=== PATIENT | female | born 1970 | race Caucasian/White ===

== ENCOUNTER → 2017-02-04 18:36 | Outpatient (CLI) | payer OTHER ==
[2009-05-20 16:12] VITALS: BMI 28.3
== END | disposition home or self-care (01) ==
LOC: D.MAMMO 16:15
DX: Z12.31 Encounter for screening mammogram for malignant neoplasm of breast (principal)

== ENCOUNTER → 2017-02-10 08:57 | Outpatient (CLI) | payer OTHER ==
[2009-05-20 16:12] VITALS: BMI 28.3
--- NOTE | 2017-03-01 09:15 | EC ---
PATIENT:CARLOS NELSON DATE OF SERVICE: 02/10/17 SEX: F MEDICAL RECORD: [id number] DATE OF : 68 LOCATION:D.[facility]ERLY [facility] AGE OF PATIENT: 46 ADMISSION DATE: 02/10/17 REFERRING PHYSICIAN: INTERPRETING PHYSICIAN: ROBYN ROSEN MD ECHOCARDIOGRAM REPORT ECHO CHARGES 4 ECHO COMPLETE CLINICAL DIAGNOSIS: CP/PALPITATIONS/FATIGUE ECHOCARDIOGRAPHIC MEASUREMENTS (adult normal given) AC root (d.<3.7cm) 3.1 cm LV Septum d (<1.2 cm> 0.9 cm Valve Excursion 1.8 cm LV Septum (systole) 1.2 cm Left Atria (s.<4.0cm> 3.8 cm LVPW d(<1.2cm) 1.0 cm RV (d.<2.3cm) 2.3 cm LVPW (sytole) 1.7 cm LV diastole(<5.6CM) 5.9 cm MV E-F(>70mm/sec) cm LV systole 3.4 cm LVOT Diameter 1.9 cm MV exc.(>10mm) cm Est.ejection fraction (50-75%) % Pericardial Effusion N DOPPLER: LVIT cm/sec A 60.0 cm/sec E 43.0 cm/sec LA cm/sec RVSP 23.1 mmHg LVOT 83.0 cm/sec AOP1/2T m/s Asc. Ao 92.0 cm/sec RVOT 64.0 cm/sec RA cm/sec PA 73.0 cm/sec AV Gradient Peak 3.4 mmHg AV Mean 1.7 mmHg AV Area 2.5 cm MV Gradient Peak 2.8 mmHg MV Mean 0.80 mmHg MV Area cm COMMENTS: Home Organizer: Clayton PERDOMOOE Gift Shop Clerk: 4 Dr. Rosen TAPE# PACS DATE OF SERVICE: 02/10/2017 PROCEDURE: Transthoracic echocardiogram. FINDINGS: 1. Left ventricle is normal size, normal function, ejection fraction 55%. Inflow characteristics are consistent with diastolic dysfunction. 2. The mitral valve shown to have trace mitral regurgitation. The structure of the mitral valve is grossly normal. 3. The aortic valve is normal structure, normal function. ECHOCARDIOGRAM REPORT [id number] CARLOS NELSON 4. The left atrium is normal size, normal function. 5. Tricuspid valve is normal. 6. The pulmonic valve is normal. 7. The right atrium is normal size, normal function. 8. The right ventricle is normal size, normal function. CONCLUSIONS: The patient has normal LV function and has grossly normal echocardiogram with mild evidence of diastolic dysfunction. TRANSINT:[id number] Voice Confirmation ID: [id number] DOCUMENT ID: [id number] ROBYN ROSEN MD at 0915 CC: [id number] DICTATION DATE: 02/16/17827 CLEANER WINDOW: 02/16/1755 DEP CLI 02/10/[address] [id number]
== END | disposition home or self-care (01) ==
LOC: D.ECHO 02-09 09:30
DX: R07.9 Chest pain, unspecified (principal); R00.2 Palpitations; R53.83 Other fatigue

== ENCOUNTER → 2018-05-24 17:02 | Outpatient (CLI) | payer BC ==
[2009-05-20 16:12] VITALS: BMI 28.3
== END | disposition home or self-care (01) ==
LOC: D.MAMMO 13:15
DX: Z12.31 Encounter for screening mammogram for malignant neoplasm of breast (principal)